=== PATIENT | male | born 1970 | race Caucasian/White ===

== ENCOUNTER 2018-08-29 21:41 | Emergency (ER) | payer SELFPAY ==
[~2018-08-29] VITALS: Ht 177.8 cm; Wt 88.5 kg
--- NOTE | 2018-08-29 22:00 | NUR ---
Pt bib [id number] with c/o abd pain. Pt uncooperative, yelling at doctor and staff members. Security at bedside.
--- NOTE | 2018-08-29 22:00 | NUR ---
Dr. Jeffrey MEJÍA MD at bedside to evaluate pt.
--- NOTE | 2018-08-29 22:22 | NUR ---
lab at bedside for blood draw. pt refusing blood draw at this time. aware.
--- NOTE | 2018-08-29 22:46 | NUR ---
Pt keeps changing his mind, states he now wants blood tests to be drawn. Blood was drawn & sent to lab. Pt refusing chest xray
--- NOTE | 2018-08-29 22:47 | NUR ---
Patient eloped from facility. ER physician notified.
[2018-08-29 22:53] LABS: BASOPHILS # (AUTO) 0.1 K/uL (0.0-8.0); BASOPHILS % (AUTO) 0.7 % (0.0-2.0); EOSINOPHILS % (AUTO) 0.5 % (0.0-7.0); HEMATOCRIT 39.7 % (36.7-47.1); HEMOGLOBIN 12.9 g/dL (12.5-16.3); LYMPHOCYTES # (AUTO) 2.1 K/uL (20.0-40.0); LYMPHOCYTES % (AUTO) 26.7 % (20.5-51.5); MEAN CORPUSCULAR HEMOGLOBIN 28.6 uug (23.8-33.4); MEAN CORPUSCULAR HGB CONC 33 g/dL (32.5-36.3); MEAN CORPUSCULAR VOLUME 88.1 fL (73.0-96.2); MONOCYTES # (AUTO) 0.8 K/uL (2.0-10.0); MONOCYTES % (AUTO) 9.5 % (0.0-11.0); NEUTROPHILS % (AUTO) 62.6 % (38.5-71.5); PLATELET COUNT (AUTO) 261 K/uL (152-348); RED BLOOD CELL COUNT(AUTO) 4.51 MIL/uL (4.06-5.63); WHITE BLOOD COUNT (AUTO) 8.1 K/uL (3.6-10.2)
[2018-08-29 22:58] LABS: CREATININE 1.8 mg/dL (0.6-1.3); POTASSIUM 4.8 mmol/L (3.5-5.1)
[2018-08-29 23:03] LABS: BILIRUBIN,DIRECT 0.7 mg/dL (0.0-0.2); BILIRUBIN,TOTAL 1.5 mg/dL (0.2-1.0); TOTAL PROTEIN, SERUM 6.7 g/dL (6.4-8.2)
== END 2018-08-29 22:53 | disposition left against medical advice (07) ==
LOC: ER 21:41
DX: R06.02 Shortness of breath (principal); R53.81 Other malaise; Z59.0 Homelessness
CPT/HCPCS: 36415; 70030-TC; 83690; 85025; 93005

== ENCOUNTER 2018-09-09 18:06 | Emergency (ER) | payer SELFPAY ==
[~2018-09-09] VITALS: Ht 177.8 cm; Wt 88.5 kg
[2018-09-09] MEDS ORDERED: HYDROCODONE/APAP 5-325MG TABLET ONE (18:39)
--- NOTE | 2018-09-09 18:43 | NUR ---
PT REFUSED BLOOD WORK. AWARE.
[2018-09-09] MEDS ORDERED: HYDROCODONE/APAP 5-325MG TABLET PO ONE (18:45)
--- NOTE | 2018-09-09 18:52 | NUR ---
Patient eloped from facility. ER physician notified.
== END 2018-09-09 19:00 | disposition left against medical advice (07) ==
LOC: ER 18:11
DX: G89.29 Other chronic pain (principal); M79.674 Pain in right toe(s); M79.675 Pain in left toe(s); L98.499 Non-pressure chronic ulcer of skin of other sites with unspecified severity; I45.10 Unspecified right bundle-branch block; R00.0 Tachycardia, unspecified; Z76.5 Malingerer [conscious simulation]; Z59.0 Homelessness
CPT/HCPCS: 93005; A4663

== ENCOUNTER 2018-11-01 04:03 | Emergency (ER) | payer OTHER ==
--- NOTE | 2018-11-01 04:15 | NUR ---
PATIENT CALLED TO BE TRIAGED, BUT RESUSED TO BE SEEN AT THIS TIME.
--- NOTE | 2018-11-01 04:19 | NUR ---
PATIENT WAS NOT TRIAGED AND NOT SEEN BY MD.
--- NOTE | 2018-11-01 04:20 | NUR ---
PATIENT WALKED OUT OF WAITING ROOM WITHOUT BEING SEEN.
== END 2018-11-01 04:29 | disposition left against medical advice (07) ==
LOC: ER 04:07
DX: Z53.21 Procedure and treatment not carried out due to patient leaving prior to being seen by health care provider (principal)

== ENCOUNTER 2019-10-25 05:33 | Emergency (ER) | payer SELFPAY ==
--- NOTE | 2019-10-25 05:36 | NUR ---
Patient left without being triaged or seen by ERMD.
== END 2019-10-25 05:41 | disposition left against medical advice (07) ==
LOC: ER 05:37
DX: Z75.3 Unavailability and inaccessibility of health-care facilities (principal)

== ENCOUNTER 2020-05-12 01:44 | Emergency (ER) | payer OTHER ==
[~2020-05-12] VITALS: Ht 193 cm; Wt 86.2 kg
--- NOTE | 2020-05-12 01:52 | NUR ---
Dr. Colvin at bedside for MSE.
[2020-05-12] MEDS ORDERED: GABA-532 PO (02:01)
[2020-05-12] MEDS ORDERED: [UNRECOGNIZED DRUG - REMARK] (02:01)
[2020-05-12 02:19] LABS: BASOPHILS # (AUTO) 0.1 K/uL (0.0-8.0); EOSINOPHILS # (AUTO) 0.1 K/uL (0.0-0.7); EOSINOPHILS % (AUTO) 1.1 % (0.0-7.0); HEMOGLOBIN 12.5 g/dL (12.5-16.3); LYMPHOCYTES # (AUTO) 1.8 K/uL (20.0-40.0); LYMPHOCYTES % (AUTO) 30.1 % (20.5-51.5); MEAN CORPUSCULAR HEMOGLOBIN 29.9 uug (23.8-33.4); MEAN CORPUSCULAR HGB CONC 33 g/dL (32.5-36.3); MEAN CORPUSCULAR VOLUME 90.6 fL (73.0-96.2); MONOCYTES # (AUTO) 0.8 K/uL (2.0-10.0); MONOCYTES % (AUTO) 12.5 % (0.0-11.0); NEUTROPHILS # (AUTO) 3.3 K/uL (1.8-8.9); NEUTROPHILS % (AUTO) 55.3 % (38.5-71.5); PLATELET COUNT (AUTO) 174 K/uL (152-348); RED BLOOD CELL COUNT(AUTO) 4.19 MIL/uL (4.06-5.63)
[2020-05-12 02:24] LABS: CREATININE 0.9 mg/dL (0.6-1.3); POTASSIUM 3.6 mmol/L (3.5-5.1)
[2020-05-12] MEDS ORDERED: ASPIRIN 81 MG TAB.CHEW PO ONE (02:30)
--- NOTE | 2020-05-12 02:35 | NUR ---
Called [facility] to page Dr. Lionel Cruz.
[2020-05-12] MEDS ORDERED: ASPIRIN 325 MG TABLET ONE (02:46)
--- NOTE | 2020-05-12 03:30 | NUR ---
Pt removed IV, stated he doesn't want his bike locked up, and doesn't feel like staying in the hospital. Patient eloped from facility. ER physician notified.
== END 2020-05-12 03:34 | disposition left against medical advice (07) ==
LOC: ER 01:46 → MERGE 01:46 → ER 03:34
DX: R07.9 Chest pain, unspecified (principal); Z59.0 Homelessness; I10 Essential (primary) hypertension; E78.5 Hyperlipidemia, unspecified; I25.10 Atherosclerotic heart disease of native coronary artery without angina pectoris; I25.2 Old myocardial infarction; F15.10 Other stimulant abuse, uncomplicated; I42.9 Cardiomyopathy, unspecified; F17.200 Nicotine dependence, unspecified, uncomplicated; Z20.828 Contact with and (suspected) exposure to other viral communicable diseases
CPT/HCPCS: 36415; 70030-TC; 71045; 85025; 93005; A4663

== ENCOUNTER 2020-05-16 22:15 | Emergency (ER) | payer SELFPAY ==
[~2020-05-16 22:15] MED LIST: GABA-532 PO; [UNRECOGNIZED DRUG - REMARK]
--- NOTE | 2020-05-16 22:20 | NUR ---
PATIENT LEFT WITHOUT BEING BY ERMD OR TRAIGED.
== END 2020-05-16 22:21 | disposition left against medical advice (07) ==
LOC: ER 22:17
DX: Z75.3 Unavailability and inaccessibility of health-care facilities (principal)